=== PATIENT | female | born 1950 | race Caucasian/White ===

== ENCOUNTER 2021-07-25 14:12 | Emergency (ER) | payer MEDICARE, OTHER ==
[2021-07-25] MEDS ORDERED: Adacel Vial IM ONE ×2 (15:44→15:53)
[2021-07-25 16:14] VITALS: O2SAT 94
--- NOTE | 2021-07-25 16:49 | XRAY ---
Indication: Left mandible/neck laceration following fall. Multiple contiguous axial images obtained through the head without contrast. Comparison: None Age-appropriate global atrophy. Left vertex demonstrates a 2.7 cm well-circumscribed extra-axial noncalcified mass, possible meningioma. No acute intracranial hemorrhage, abnormal extra-axial fluid collection, or mass effect. Fourth ventricle is midline without hydrocephalus. Bony calvarium intact. Visualized paranasal sinuses and mastoid air cells are clear. Impression: 1. 2.7 cm left vertex extra-axial mass, possible meningioma. CT or MRI with contrast exam may confirm. 2. No acute intracranial abnormalities.
--- NOTE | 2021-07-25 16:53 | XRAY ---
Indication: Left neck/mandible laceration following fall. Multiple contiguous axial images obtained through the cervical spine. Sagittal and coronal reformatted images obtained. Comparison: None Age-appropriate osteopenia. Axial images negative for acute fracture, suspicious bony lesions, or spinal canal stenosis. Mild/moderate C3-C7 degenerative endplate spurring greatest at C5-C7 levels. Also moderate multilevel bilateral degenerative facet hypertrophy. Sagittal and coronal reformatted images demonstrates lordotic reversal, positional versus paraspinal spasm. 3-4 mm C3 anterolisthesis on C4. C5-C7 degenerative disc space loss. No acute compression fracture or jumped facet. Normal appearing craniocervical junction. Visualized noncontrasted soft tissues demonstrates mild/moderate scattered bilateral carotid calcifications, heterogeneous enlarged thyroid gland, and 1.2 cm left lung apical calcified granuloma. Impression: 1. Negative acute fracture. 2. Cervical lordotic reversal, positional versus paraspinal spasm. 3. Multilevel degenerative spondylosis including grade 1 C3 spondylolisthesis. 4. Incidental bilateral carotid calcifications, heterogeneous thyromegaly, and left lung apical calcified granuloma.
--- NOTE | 2021-07-25 17:24 | ERPHSYRPT ---
- History of Present Illness Time Seen by Provider: 07/25/21 14:34 Source: patient Exam Limitations: no limitations Patient Subjective Stated Complaint: Pt fell outside and landed on concrete and has a skin tear on her left side of her neck and hit the back of her head she thinks on her grill Triage Nursing Assessment: Pt was brought to the ER by her daughter, hypertensive, rates pain in head and neck as 7/10, denies loss of consciousness, states that she has one leg shorter than the other and therefore she has several falls, head is tender to the back, large "V" shape skin tear to the left of her neck, doesn't appear to be in any distress Physician History: 71-year-old female with history of pretension, hyperlipidemia, GERD, Charcot foot with one leg shorter than the other, uses cane for ambulation with balance issue but at her baseline presented in the ER after she tripped while walking and fell backward hitting her head against the grill and her neck without loss of consciousness. She has a superficial skin tear on the left lateral neck without any difficulty movements of neck. She is also having mild headache without focal numbness tingling or weakness. No visual disturbance. No difficulty speech. Denies any chest pain palpitations or shortness of breath before or after the fall. Occurred: just prior to arrival Reason for Fall: tripped Injuries/Pain Location: head, neck Loss of Consciousness: no loss of consciousness Quality: sharpness Severity of Pain-Max: moderate Severity of Pain-Current: moderate Modifying Factors: Improves With: nothing Associated Symptoms (Fall): headache, muscle spasms Allergies/Adverse Reactions: duloxetine [From Cymbalta] Allergy (Verified 07/25/21 14:35) Home Medications: Atorvastatin Calcium 40 mg PO DAILY 07/25/21 [History] Buspirone HCl [Buspar] 15 mg PO BID 07/25/21 [History] Furosemide 40 mg [Lasix 40 MG] 40 mg PO DAILY 07/25/21 [History] Travel Risk - International Travel Have you traveled outside of the country in past 3 weeks: No - Coronavirus Screening Are you exhibiting any of the following symptoms?: No Close contact with a COVID-19 positive Pt in past 14-21 Days: No - Vaccine Status Have you recieved a Covid-19 vaccination: Yes [address] Crier: Moderna - Vaccination Dates Date of 2cond Vaccination (if applicable): 04/2021 - Review of Systems Constitutional: No Symptoms Eyes: No Symptoms Ears, Nose, & Throat: No Symptoms Respiratory: No Symptoms Cardiac: No Symptoms Abdominal/Gastrointestinal: No Symptoms Genitourinary Symptoms: No Symptoms Musculoskeletal: Neck Pain, Joint Pain Skin: Skin Lesions Neurological: Headache Psychological: No Symptoms Endocrine: No Symptoms Hematologic/Lymphatic: No Symptoms Immunological/Allergic: No Symptoms - Past Medical History Pertinent Past Medical History: Yes Musculoskeletal History: Rheumatoid Arthritis Other Medical History: charcot foot - Past Surgical History Past Surgical History: Yes Gastrointestinal: Appendectomy, Cholecystectomy Musculoskeletal: Joint Replacement Female Surgical History: Hysterectomy Other Surgical History: 2 hip replacements, knee replaced twice - Social History Smoking Status: Never smoker Exposure to second hand smoke: No Drug Use: none Patient Lives Alone: No - Female History Hx Now: No - Nursing Vital Signs Nursing Vital Signs: Initial Vital Signs Temperature 98.4 F 07/25/21 14:25 Pulse Rate 60 07/25/21 14:25 Blood Pressure 153/77 07/25/21 14:25 O2 Sat by Pulse Oximetry 92 L 07/25/21 14:25 Pain Scale Pain Intensity 7 - Terry Coma Score Best Eye Response ([place]): (4) open spontaneously Best Verbal Response ([place]): (5) oriented Best Motor Response ([place]): (6) obeys commands Terry Total: 15 - Physical Exam General Appearance: no apparent distress, alert, anxiety Head Injury: contusions, tenderness (Posterior occipitoparietal area with no step in deformity. Mild contusion) Eye Exam: PERRL/EOMI, eyes nml inspection ENT Exam: airway nml, No evidence of ENT injury, No dental injury Neck Exam: supple, trachea midline, full range of motion, normal alignment, other (V-shaped superficial skin tear left lateral neck without active spurting/oozing r) Respiratory/Chest Exam: normal breath sounds, respiratory distress, No chest tenderness Cardiovascular Exam: normal heart sounds, regular rate/rhythm Gastrointestinal Exam: soft, normal bowel sounds, No tenderness Back Exam: normal inspection, normal range of motion, No CVA tenderness, No vertebral tenderness Extremity Exam: normal inspection, normal range of motion, capillary refill <3 sec Neurologic Exam: alert, oriented x 3, cooperative, lathe tender II-XII nml as tested, normal mood/affect, nml cerebellar function, sensation nml, No motor deficits Skin Exam: normal color SpO2 Interpretation: normal SpO2: 94 O2 Delivery: Room Air Ordered Tests: Active Orders 24 hr Category Date Time Status CERVICAL SPINE WO CONTRAST [CT] Stat Exams 07/25/21 15:43 Completed HEAD WITHOUT CONTRAST [CT] Stat Exams 07/25/21 15:44 Completed Medication Summary Discontinued Medications Generic Name Dose Route Start Last Admin Trade Name Jonathan PRN Reason Stop Dose Admin Diphtheria/Tetanus/Acell Pertussis 0.5 ml 07/25/21 15:44 07/25/21 15:54 Tdap --Diph,Pertuss(Acell),Tet Vac/Pf 0.5 Ml Vial IM 07/25/21 15:45 0.5 ml .ONCE ONE Administration Diphtheria/Tetanus/Acell Pertussis Confirm 07/25/21 15:53 Tdap --Diph,Pertuss(Acell),Tet Vac/Pf 0.5 Ml Vial Administered 07/25/21 15:54 Dose 0.5 ml IM .STK-MED ONE - Progress Progress: unchanged Progress Note: 07/25/21 17:22 She is offered pain medicine which she refused. Tetanus is updated. She has a superficial skin tear which is cleaned and covered with nonadherent dressing. CT head and cervical spine are obtained. CT head is negative for any acute intracranial finding but does have incidental finding of meningioma probably which she is advised to have outpatient follow-up with primary care and may need MRI. She has a nonfocal neuro exam otherwise. CT cervical spine is negative for any acute fracture or subluxation and probably have some spasm from fall. She is advised to take Tylenol as needed. It was a clear mechanical fall, do not think needs any other work-up and is stable for discharge with outpatient follow-up. Counseled pt/family regarding: diagnosis, need for follow-up, rad results - Departure Departure Disposition: Home Clinical Impression: Skin tear Scalp contusion Qualifiers: Encounter type: initial encounter Qualified Code(s): S00.03XA - Contusion of scalp, initial encounter Fall Qualifiers: Encounter type: initial encounter Qualified Code(s): W19.XXXA - Unspecified fall, initial encounter Cervical muscle strain Qualifiers: Encounter type: initial encounter Qualified Code(s): S16.1XXA - Strain of muscle, fascia and tendon at neck level, initial encounter Condition: Stable Critical Care Time: No Referrals: ZORAIDA MORENO [Primary Care Provider] - Follow up/PCP as directed (Tomorrow for reevaluation) Instructions: Contusion (DC), Preventing Falls, Wound Care (DC), Head Injury Observation (DC) Additional Instructions: Take Tylenol as needed. Daily dressing changes. You have a small mass and the brain probably meningioma which may need further evaluation by MRI from your outpatient primary care doctor. Follow-up with him in 1 to 2 days for reevaluation and for MRI schedule. Follow head injury instructions and return to ER for any worsening. Use cane/walker all the time for ambulation to avoid a fall.
[2021-07-25] MEDS ORDERED: PERCOCET TABLET 5/325MG PO ONE (17:57)
[2021-07-25] MEDS ORDERED: PERCOCET TABLET 5/325MG ONE (18:20)
[2021-07-25] MEDS ORDERED: BACIGUENT PACKET ONE (18:25)
[2021-07-25 18:55] VITALS: BP 138/67; PULSE 74
== END 2021-07-25 18:54 | disposition home or self-care (01) ==
LOC: ED 14:12
DX: S00.03XA Contusion of scalp, initial encounter (principal); W01.198A Fall on same level from slipping, tripping and stumbling with subsequent striking against other object, initial encounter; Z91.81 History of falling; S16.1XXA Strain of muscle, fascia and tendon at neck level, initial encounter; S11.81XA Laceration without foreign body of other specified part of neck, initial encounter; I10 Essential (primary) hypertension; E78.5 Hyperlipidemia, unspecified; M14.679 Charcot's joint, unspecified ankle and foot
CPT/HCPCS: 70450; 72125; 90471; 90715; 99284; A9270-GY

== ENCOUNTER 2023-09-03 14:30 | Day surgery (SDC) | payer MEDICARE, OTHER ==
[2023-09-03] MEDS ORDERED: XYLOCAINE-MPF 1% 5ML SDV IJ ONE (14:31)
[2023-09-03] MEDS ORDERED: Decadron 4 MG INJ ONE (16:40)
[2023-09-03] MEDS ORDERED: Sodium Chloride 0.9(Preservative Free) 10 ML ONE (16:40)
[2023-09-03] MEDS ORDERED: Lactated Ringers 1,000 ML IV ONE (17:20)
--- NOTE | 2023-09-03 20:55 | XRAY ---
Indication: Cervical DORI. Intraoperative fluoroscopy provided for 47 seconds. 5 digital spot images submitted for interpretation demonstrates posterior needle tip projecting posterior to cervical thoracic junction. Small amount of contrast injected for needle tip placement. Correlate with intraoperative findings/report.
--- NOTE | 2023-09-04 09:17 | XRAY ---
47 seconds of fluoroscopy was used in surgery for a cervical DORI.
== END 2023-09-03 17:57 | disposition home or self-care (01) ==
LOC: SDC-PAIN 14:30
PROVIDERS: ATTEND Psychiatry & Neurology Pain Medicine
DX: M54.12 Radiculopathy, cervical region (principal)
CPT/HCPCS: 62321; 72040; 77003; J1100; Q9966